=== PATIENT | female | born 1990 | race African-American/Black ===

== ENCOUNTER 2020-06-11 10:40 | Inpatient (IN) | payer OTHER ==
[2020-06-11] MEDS: ELECTROLYTE-148 SOLN 1,000 ML IV SCH ×2 (11:45→15:38)
[2020-06-11] MEDS ORDERED: AMPICILLIN SODIUM 2 GM VIAL ONE (11:52)
[2020-06-11 12:36] LABS: BASO % 0.3 % (0-2.0); EOS % 0.7 % (0-4.5); HEMATOCRIT 32.8 % (32.4-45.2); HEMOGLOBIN 10.8 GM/dL (10.7-15.3); LYMPH % 12.8 % (8-40); MCH 26.8 pg (25.7-33.7); MEAN CELL VOLUME 81.2 fl (80-96); MEAN PLT VOLUME 10.4 fl (7.5-11.1); MONO % 8.6 % (3.8-10.2); NEUT % 77.6 % (42.8-82.8); PLATELET COUNT 133 K/MM3 (134-434); RBC 4.03 M/mm3 (3.60-5.2); RDW 15.3 % (11.6-15.6); WHITE BLOOD COUNT 5.9 K/mm3 (4.0-10.0)
[2020-06-11 12:44] LABS: INR 0.96 (0.83-1.09); PROTHROMBIN TIME (PATIENT) 11.6 SEC (9.7-13.0)
[2020-06-11] MEDS ORDERED: AMPICILLIN - 2 GM in SODIUM CHLORIDE 100 ML IVPB ONE (12:45)
[2020-06-11 12:53] LABS: POTASSIUM 3.9 mmol/L (3.5-5.1)
[2020-06-11 12:54] LABS: CALCIUM 8.7 mg/dL (8.5-10.1)
[2020-06-11 12:55] LABS: BLOOD UREA NITROGEN 4.9 mg/dL (7-18)
[2020-06-11] MEDS ORDERED: PROMETHAZINE HCL 25 MG/1 ML VIAL ONE (12:57)
[2020-06-11] MEDS ORDERED: BUTORPHANOL TARTRATE 2 MG/ML VIAL ONE (12:57)
[2020-06-11 12:58] LABS: CREATININE 0.5 mg/dL (0.55-1.3)
[2020-06-11] MEDS ORDERED: BUTORPHANOL TARTRATE 2 MG/ML VIAL IVPB ONE (13:00)
[2020-06-11] MEDS ORDERED: PROMETHAZINE HCL 25 MG/1 ML VIAL IVPB ONE (13:00)
[2020-06-11 13:20] VITALS: BMI 28.1
[2020-06-11 13:52] LABS: HIV INTERPRETATION NEGATIVE (NEGATIVE)
[2020-06-11] MEDS ORDERED: OXYTOCIN 20 UNITS in 0.9% NS 20 UNIT/1,000 ML INFUS.BAG IV ONE ×2 (14:32→20:25)
[2020-06-11] MEDS ORDERED: FENTANYL/BUPIVACAINE/NS/PF - PCEA - 50 ML DISP.SYRIN EP ONE (14:32)
[2020-06-11] MEDS ORDERED: PCA PUMP NR ONE (14:32)
[2020-06-11] MEDS ORDERED: BUPIVACAINE HCL/PF 0.25% (2.5MG/ML) 10 ML VIAL ONE (14:38)
[2020-06-11] MEDS ORDERED: NALOXONE HCL 0.4 MG/ML VIAL IVPUSH PRN (15:09)
[2020-06-11] MEDS ORDERED: FENTANYL/BUPIVACAINE/NS/PF - PCEA - 50 ML DISP.SYRIN EP SCH (15:15)
[2020-06-11] MEDS ORDERED: AMPICILLIN SODIUM 1 GM VIAL ONE (15:31)
[2020-06-11] MEDS ORDERED: AMPICILLIN - 1 GM in SODIUM CHLORIDE 100 ML IVPB SCH (16:45)
[2020-06-11] MEDS ORDERED: oxyCODONE HCL 5 MG TABLET PO PRN (18:22)
[2020-06-11] MEDS ORDERED: METHYLERGONOVINE MALEATE 0.2 MG/1 ML AMP IM PRN (18:22)
[2020-06-11] MEDS ORDERED: BISACODYL 10 MG SUPP.RECT RC PRN (18:22)
[2020-06-11] MEDS ORDERED: BENZOCAINE 28 GM HEMORRHOIDAL OINTMENT TP PRN (18:22)
[2020-06-11] MEDS ORDERED: OXYTOCIN 20 UNITS in 0.9% NS 20 UNIT/1,000 ML INFUS.BAG IV SCH (18:30)
[2020-06-11] MEDS ORDERED: IBUPROFEN 600 MG TABLET (FP) PO ONE (20:25)
[2020-06-11] MEDS ORDERED: ACETAMINOPHEN 325 MG TABLET (FP) ONE (20:25)
[2020-06-11] MEDS: ACETAMINOPHEN 325 MG TABLET (FP) PO PRN (20:30)
[2020-06-12] MEDS: ACETAMINOPHEN 325 MG TABLET (FP) PO PRN ×4 (01:42→20:09)
[2020-06-12] MEDS: IBUPROFEN 600 MG TABLET (FP) PO PRN ×3 (01:43→16:49)
[2020-06-12] MEDS: BENZOCAINE 20% 57 GM BOTTLE TP PRN (08:10)
[2020-06-12] MEDS: WITCH HAZEL 50% (TUCKS) 40 PAD/JAR PAD TP PRN (08:10)
[2020-06-12 09:30] LABS: BASO % 0.3 % (0-2.0); HEMATOCRIT 32.1 % (32.4-45.2); HEMOGLOBIN 10.6 GM/dL (10.7-15.3); MCH 27.2 pg (25.7-33.7); MCHC 33.2 g/dl (32.0-36.0); MEAN PLT VOLUME 11.1 fl (7.5-11.1); MONO % 7.6 % (3.8-10.2); NEUT % 83.1 % (42.8-82.8); PLATELET COUNT 119 K/MM3 (134-434); RBC 3.91 M/mm3 (3.60-5.2); RDW 15.2 % (11.6-15.6)
[2020-06-12] MEDS ORDERED: DIPHTH,PERTUSS(ACELL),TET 0.5 ML DISP.SYRIN IM ONE (10:00)
[2020-06-12] MEDS: PRENATAL VITAMINS W/ FOLIC ACID TABLET (FP) PO SCH (10:57)
[2020-06-12] MEDS ORDERED: SENNOSIDES/DOCUSATE COMBO (SENNA PLUS) TABLET (UD) PO PRN (22:00)
[2020-06-13 02:17] VITALS: TEMP 98.3
[2020-06-13] MEDS: IBUPROFEN 600 MG TABLET (FP) PO PRN (09:20)
[2020-06-13] MEDS: PRENATAL VITAMINS W/ FOLIC ACID TABLET (FP) PO SCH (09:20)
[2020-06-13] MEDS: BENZOCAINE 20% 57 GM BOTTLE TP PRN (09:21)
[2020-06-13] MEDS: ACETAMINOPHEN 325 MG TABLET (FP) PO PRN (09:21)
[2020-06-13] MEDS: WITCH HAZEL 50% (TUCKS) 40 PAD/JAR PAD TP PRN (09:21)
[2020-06-13 11:28] VITALS: BP 131/79; PULSE 93
== END 2020-06-13 12:55 | disposition home or self-care (01) | DRG 807 ==
LOC: JDEL 10:40 → JLDR 11:30 → J3W 20:51
PROVIDERS: ADMIT Obstetrics & Gynecology; ATTEND Obstetrics & Gynecology
PROC: 10E0XZZ Delivery of Products of Conception, External Approach (ICD-10-PCS; principal; 2020-06-11)
DX: O70.0 First degree perineal laceration during delivery (principal); Z37.0 Single live birth; Z3A.39 39 weeks gestation of pregnancy; O99.824 Streptococcus B carrier state complicating childbirth
CPT/HCPCS: 36415; 59025; 59409; 80048; 85025; 85610; 85730; 86780; 86850; 86900; 86901; 87389; 90715; C9803; U0003

== ENCOUNTER 2022-12-27 23:19 | Emergency (ER) | payer OTHER ==
[2022-12-27 23:25] VITALS: BP 128/69; PULSE 90; RESP 18; TEMP 98.5; BMI 37.8
== END 2022-12-28 04:07 | disposition home or self-care (01) ==
LOC: JER 23:19
PROC: 0JCJ0ZZ Extirpation of Matter from Right Hand Subcutaneous Tissue and Fascia, Open Approach (ICD-10-PCS; principal; 2022-12-27)
DX: S60.452A Superficial foreign body of right middle finger, initial encounter (principal); M79.644 Pain in right finger(s); X58.XXXA Exposure to other specified factors, initial encounter
CPT/HCPCS: 99282-25

== ENCOUNTER 2023-02-17 07:11 | Inpatient (IN) | payer OTHER ==
[2023-02-17] MEDS ORDERED: PENICILLIN G POTASSIUM 5,000,000 UNIT/250 ML BAG IVPB ONE (09:10)
[2023-02-17] MEDS ORDERED: NIFEdipine E.R. 30 MG TABLET PO ONE ×3 (09:15→23:56)
[2023-02-17] MEDS ORDERED: AMPICILLIN - 2 GM in DEXTROSE 5%-WATER 100 ML IVPB ONE (09:15)
[2023-02-17 09:32] LABS: INR 0.88 (0.83-1.09); PROTHROMBIN TIME (PATIENT) 10.2 SEC (9.7-13.0)
[2023-02-17 09:38] LABS: BASO % 0.8 % (0-2.0); EOS % 1.5 % (0-4.5); HEMATOCRIT 37.6 % (32.4-45.2); LYMPH % 17.6 % (8-40); MCHC 31.8 g/dl (32.0-36.0); MEAN CELL VOLUME 78.7 fl (80-96); MEAN PLT VOLUME 10.4 fl (7.5-11.1); MONO % 12.7 % (3.8-10.2); NEUT % 67.4 % (42.8-82.8); PLATELET COUNT 163 10^3/uL (134-434); RBC 4.78 M/mm3 (3.60-5.2); RDW 15.9 % (11.6-15.6); RETICULOCYTES 1.37 % (0.5-1.5); WHITE BLOOD COUNT 5.4 K/mm3 (4.0-10.0)
[2023-02-17 09:40] LABS: ACTIVATED PTT 32.3 SECONDS (25.2-36.5)
[2023-02-17 09:45] LABS: POTASSIUM 4.4 mmol/L (3.5-5.1)
[2023-02-17] MEDS: DEXTROSE 5%-LACTATED RINGERS 1,000 ML IV SCH (09:45)
[2023-02-17 09:47] LABS: BLOOD UREA NITROGEN 10.9 mg/dL (7-18); CALCIUM 7.8 mg/dL (8.5-10.1)
[2023-02-17] MEDS ORDERED: AMPICILLIN SODIUM 2 GM VIAL ONE (09:48)
[2023-02-17 09:49] LABS: GAMMA GLUTAMYL TRANSPEPTIDASE 53 U/L (5-85)
[2023-02-17 09:50] LABS: URIC ACID 8.7 mg/dL (2.6-7.2)
[2023-02-17 09:51] LABS: CREATININE 0.9 mg/dL (0.55-1.3)
[2023-02-17 09:52] LABS: SGOT/AST 51 U/L (15-37); SGPT/ALT 32 U/L (13-61)
[2023-02-17] MEDS ORDERED: LABETALOL HCL 5 MG/1 ML (100MG/20 ML VIAL) IVPUSH ONE ×2 (10:39→23:35)
[2023-02-17] MEDS ORDERED: LABETALOL HCL 20 MG/4 ML VIAL ONE ×3 (10:44→23:11)
[2023-02-17] MEDS ORDERED: OXYTOCIN 30 UNITS in 0.9% NS 30 UNIT/500 ML INFUS.BAG IVPB SCH (10:45)
[2023-02-17] MEDS ORDERED: MAGNESIUM SULFATE 20GM/500ML - 500 ML IVPB SCH (10:45)
[2023-02-17] MEDS ORDERED: MAGNESIUM 4GM/H20 - 100 ML IVPB SCH (10:45)
[2023-02-17] MEDS: ELECTROLYTE-148 SOLN 1,000 ML IV SCH (12:19)
[2023-02-17 12:25] LABS: HIV INTERPRETATION NEGATIVE (NEGATIVE)
[2023-02-17] MEDS: MAGNESIUM SULFATE 20GM/500ML - 20 GM/500 ML INFUS.BAG IVPB SCH ×2 (12:40→21:40)
[2023-02-17] MEDS ORDERED: MAGNESIUM 4GM/H20 - 4 GM/100 ML IVPB IVPB SCH (12:45)
[2023-02-17] MEDS ORDERED: MAGNESIUM 4GM/H20 - 4 GM/100 ML IVPB IVPB ONE (12:45)
[2023-02-17] MEDS ORDERED: LABETALOL HCL 20 MG/4 ML VIAL IVPUSH ONE (12:45)
[2023-02-17] MEDS ORDERED: PENICILLIN G POTASSIUM 2,500,000 UNIT in SODIUM CHLORIDE 100 ML IVPB SCH (13:15)
[2023-02-17 13:44] VITALS: BMI 31.8
[2023-02-17] MEDS: AMPICILLIN - 1 GM in DEXTROSE 5%-WATER 100 ML IVPB SCH ×4 (13:45→22:56)
[2023-02-17] MEDS ORDERED: hydrALAZINE HCL 20 MG/ML VIAL ONE (14:28)
[2023-02-17] MEDS ORDERED: AMPICILLIN SODIUM 1 GM VIAL ONE ×2 (14:29→18:51)
[2023-02-17] MEDS ORDERED: hydrALAZINE HCL 20 MG/ML VIAL IVPUSH ONE (14:30)
[2023-02-17 17:06] LABS: MAGNESIUM 4.9 mg/dL (1.8-2.4)
[2023-02-17] MEDS ORDERED: ONDANSETRON 4 MG/2 ML VIAL IVPUSH PRN (18:43)
[2023-02-17] MEDS ORDERED: CITRIC ACID/SODIUM CITRATE 30 ML UNIT-DOSE CUP PO ONE (19:00)
[2023-02-17] MEDS ORDERED: FENTANYL CITRATE/PF 50 MCG/ML VIAL ONE (19:10)
[2023-02-17] MEDS ORDERED: morphine SULFATE/PF 1 MG/2 ML (2cc Syringe - QUVA) ONE (19:10)
[2023-02-17] MEDS ORDERED: LIDO 2%/EPI 1:200000 PRESRVFRE (20 ML SDVIAL) ONE (19:12)
[2023-02-17] MEDS ORDERED: ONDANSETRON 4 MG/2 ML VIAL ONE (20:00)
[2023-02-17] MEDS ORDERED: OXYTOCIN 10 UNITS/ML VIAL ONE ×3 (20:15→20:21)
[2023-02-17] MEDS ORDERED: CALCIUM CHLORIDE 1 GM/10 ML *DISP.SYRIN ONE (20:21)
[2023-02-17] MEDS ORDERED: SODIUM BICARBONATE 8.4% 50 MEQ/50 ML VIAL ONE (20:21)
[2023-02-17] MEDS ORDERED: MAGNESIUM SULFATE 20GM/500ML - 20 GM/500 ML INFUS.BAG ONE (21:33)
[2023-02-17] MEDS ORDERED: OXYTOCIN 20 UNITS in 0.9% NS 20 UNIT/1,000 ML INFUS.BAG IV ONE (21:33)
[2023-02-17] MEDS: OXYTOCIN 20 UNITS in 0.9% NS 20 UNIT/1,000 ML INFUS.BAG IV SCH (21:40)
[2023-02-17] MEDS ORDERED: METHYLERGONOVINE MALEATE 0.2 MG/1 ML AMP IM PRN (21:43)
[2023-02-17] MEDS ORDERED: ACETAMINOPHEN 1000 MG/100 ML BAG IVPB PRN (21:45)
[2023-02-17] MEDS: IBUPROFEN 800 MG/8 ML IJ IVPB PRN (21:53)
[2023-02-17] MEDS ORDERED: LABETALOL HCL 200 MG TABLET (FP) PO SCH (22:00)
[2023-02-17] MEDS ORDERED: LABETALOL HCL 100 MG TABLET (FP) ONE (22:02)
[2023-02-18 00:45] LABS: MAGNESIUM 5.3 mg/dL (1.8-2.4)
[2023-02-18] MEDS ORDERED: NIFEdipine 10 MG CAPSULE (FP) PO ONE (01:25)
[2023-02-18] MEDS ORDERED: MAGNESIUM SULFATE 20GM/500ML - 20 GM/500 ML INFUS.BAG ONE (07:45)
[2023-02-18] MEDS: MAGNESIUM SULFATE 20GM/500ML - 20 GM/500 ML INFUS.BAG IVPB SCH ×2 (07:50→21:42)
[2023-02-18] MEDS ORDERED: LABETALOL HCL 20 MG/4 ML VIAL ONE (08:05)
[2023-02-18] MEDS ORDERED: FERROUS SO4 325 MG TABLET (FP) ONE (08:26)
[2023-02-18 08:32] LABS: BASO % 0.4 % (0-2.0); EOS % 0.5 % (0-4.5); HEMATOCRIT 37.9 % (32.4-45.2); HEMOGLOBIN 12.8 GM/dL (10.7-15.3); MCH 25.8 pg (25.7-33.7); MCHC 33.9 g/dl (32.0-36.0); MEAN CELL VOLUME 76.3 fl (80-96); MEAN PLT VOLUME 9.6 fl (7.5-11.1); NEUT % 85.1 % (42.8-82.8); PLATELET COUNT 145 10^3/uL (134-434); RBC 4.97 M/mm3 (3.60-5.2); RDW 16.2 % (11.6-15.6); WHITE BLOOD COUNT 8.4 K/mm3 (4.0-10.0)
[2023-02-18] MEDS: FERROUS SO4 325 MG TABLET (FP) PO SCH ×2 (08:33→17:05)
[2023-02-18] MEDS ORDERED: LABETALOL HCL 20 MG/4 ML VIAL IVPUSH ONE (08:45)
[2023-02-18] MEDS ORDERED: PRENATAL VITAMINS W/ FOLIC ACID TABLET (FP) PO ONE (09:27)
[2023-02-18] MEDS ORDERED: IBUPROFEN 800 MG/8 ML IJ IVPB ONE (09:27)
[2023-02-18] MEDS: IBUPROFEN 800 MG/8 ML IJ IVPB PRN ×2 (09:32→20:18)
[2023-02-18] MEDS: PRENATAL VITAMINS W/ FOLIC ACID TABLET (FP) PO SCH (09:32)
[2023-02-18] MEDS ORDERED: NIFEdipine E.R. 30 MG TABLET PO ONE (09:50)
[2023-02-18] MEDS: NIFEdipine E.R. 30 MG TABLET PO SCH ×2 (09:51)
[2023-02-18] MEDS ORDERED: NIFEdipine E.R. 30 MG TABLET PO SCH ×2 (10:00→23:40)
[2023-02-18] MEDS ORDERED: LABETALOL HCL 100 MG TABLET (FP) ONE ×2 (10:41→14:05)
[2023-02-18] MEDS: LABETALOL HCL 200 MG TABLET (FP) PO SCH ×3 (10:50→22:19)
[2023-02-18] MEDS: ELECTROLYTE-148 SOLN 1,000 ML IV SCH (10:54)
[2023-02-18] MEDS: DEXTROSE 5%-LACTATED RINGERS 1,000 ML IV SCH (10:54)
[2023-02-18] MEDS ORDERED: OXYTOCIN 20 UNITS in 0.9% NS 20 UNIT/1,000 ML INFUS.BAG IV ONE (11:56)
[2023-02-18] MEDS: OXYTOCIN 20 UNITS in 0.9% NS 20 UNIT/1,000 ML INFUS.BAG IV SCH (12:04)
[2023-02-18] MEDS: SIMETHICONE 80 MG TAB.CHEW (FP) PO PRN (20:19)
[2023-02-18] MEDS ORDERED: ACETAMINOPHEN 325 MG TABLET (FP) PO PRN (21:43)
[2023-02-18] MEDS ORDERED: BISACODYL 10 MG SUPP.RECT RC PRN (21:43)
[2023-02-19] MEDS: SIMETHICONE 80 MG TAB.CHEW (FP) PO PRN ×5 (03:01→21:23)
[2023-02-19] MEDS: oxyCODONE HCL 5 MG TABLET PO PRN ×4 (03:07→17:59)
[2023-02-19 03:47] VITALS: RESP 18
[2023-02-19] MEDS: LABETALOL HCL 200 MG TABLET (FP) PO SCH ×3 (05:51→21:22)
[2023-02-19] MEDS: IBUPROFEN 600 MG TABLET (FP) PO PRN ×2 (05:57→14:04)
[2023-02-19] MEDS: FERROUS SO4 325 MG TABLET (FP) PO SCH ×2 (08:07→16:46)
[2023-02-19] MEDS: PRENATAL VITAMINS W/ FOLIC ACID TABLET (FP) PO SCH (09:18)
[2023-02-19] MEDS: NIFEdipine E.R. 30 MG TABLET PO SCH (09:18)
[2023-02-19] MEDS ORDERED: DIPHTH,PERTUSS(ACELL),TET 0.5 ML DISP.SYRIN IM ONE (12:00)
[2023-02-19] MEDS: ELECTROLYTE-148 SOLN 1,000 ML IV SCH (14:02)
[2023-02-19] MEDS: DEXTROSE 5%-LACTATED RINGERS 1,000 ML IV SCH (14:02)
[2023-02-19] MEDS: IBUPROFEN 600 MG TABLET (FP) PO SCH ×2 (14:51→21:22)
[2023-02-19] MEDS: ACETAMINOPHEN 325 MG TABLET (FP) PO SCH ×2 (15:49→23:17)
[2023-02-19] MEDS: SENNOSIDES/DOCUSATE COMBO (SENNA PLUS) TABLET (UD) PO PRN (21:22)
[2023-02-20] MEDS: SIMETHICONE 80 MG TAB.CHEW (FP) PO PRN ×4 (02:55→20:10)
[2023-02-20] MEDS: IBUPROFEN 600 MG TABLET (FP) PO SCH ×4 (02:57→20:11)
[2023-02-20] MEDS: LABETALOL HCL 200 MG TABLET (FP) PO SCH ×3 (06:29→21:55)
[2023-02-20] MEDS: ACETAMINOPHEN 325 MG TABLET (FP) PO SCH ×3 (06:30→23:07)
[2023-02-20] MEDS: FERROUS SO4 325 MG TABLET (FP) PO SCH ×2 (08:56→18:03)
[2023-02-20] MEDS: PRENATAL VITAMINS W/ FOLIC ACID TABLET (FP) PO SCH (08:59)
[2023-02-20] MEDS: NIFEdipine E.R. 30 MG TABLET PO SCH (08:59)
[2023-02-20] MEDS: ELECTROLYTE-148 SOLN 1,000 ML IV SCH (10:03)
[2023-02-20] MEDS: DEXTROSE 5%-LACTATED RINGERS 1,000 ML IV SCH (10:03)
[2023-02-20] MEDS: oxyCODONE HCL 5 MG TABLET PO PRN (18:02)
[2023-02-20] MEDS: SENNOSIDES/DOCUSATE COMBO (SENNA PLUS) TABLET (UD) PO PRN (21:56)
[2023-02-21] MEDS: IBUPROFEN 600 MG TABLET (FP) PO SCH ×3 (03:10→14:05)
[2023-02-21] MEDS: SIMETHICONE 80 MG TAB.CHEW (FP) PO PRN (03:55)
[2023-02-21] MEDS: LABETALOL HCL 200 MG TABLET (FP) PO SCH ×2 (06:35→14:05)
[2023-02-21] MEDS: ACETAMINOPHEN 325 MG TABLET (FP) PO SCH ×2 (06:35→16:10)
[2023-02-21] MEDS: PRENATAL VITAMINS W/ FOLIC ACID TABLET (FP) PO SCH (09:12)
[2023-02-21] MEDS: NIFEdipine E.R. 30 MG TABLET PO SCH (09:12)
[2023-02-21] MEDS: FERROUS SO4 325 MG TABLET (FP) PO SCH ×2 (09:13→18:26)
[2023-02-21] MEDS: DEXTROSE 5%-LACTATED RINGERS 1,000 ML IV SCH (10:51)
[2023-02-21] MEDS: ELECTROLYTE-148 SOLN 1,000 ML IV SCH (11:20)
[2023-02-21 14:08] VITALS: BP 142/90; PULSE 98; TEMP 98.5
== END 2023-02-21 18:44 | disposition left against medical advice (07) | DRG 785 ==
LOC: JLDR 07:11 → J3W 02-18 15:32
PROVIDERS: ADMIT Obstetrics & Gynecology; ATTEND Obstetrics & Gynecology
PROC: 10D00Z1 Extraction of Products of Conception, Low, Open Approach (ICD-10-PCS; principal; 2023-02-17)
PROC: 0UB70ZZ Excision of Bilateral Fallopian Tubes, Open Approach (ICD-10-PCS; 2023-02-17)
DX: O14.14 Severe pre-eclampsia complicating childbirth (principal); O62.1 Secondary uterine inertia; O69.82X0 Labor and delivery complicated by other cord entanglement, without compression, not applicable or unspecified; Z30.2 Encounter for sterilization; Z3A.39 39 weeks gestation of pregnancy; Z37.0 Single live birth
CPT/HCPCS: 36415; 80048; 82977; 83010; 83735; 84450; 84460; 84550; 85025; 85045; 85610; 85730; 86780; 86850; 86900; 86901; 87389; 88302-TC; 88307-TC; 90715